=== PATIENT | female | born 1955 | race Caucasian/White ===

== ENCOUNTER 2018-10-27 10:21 | Emergency (ER) | payer OTHER ==
[2018-10-27 10:33] VITALS: BP 143/78; PULSE 76; TEMP 97.6; BMI 19.3
[2018-10-27] MEDS ORDERED: IBUPROFEN 400 MG TABLET (FP) PO ONE ×2 (10:45→10:50)
--- NOTE | 2018-10-27 11:44 | PDOC ---
History of Present Illness - General Chief Complaint: Injury Stated Complaint: FALL/LT KNEE INJURY Time Seen by Provider: 10/27/18 10:34 History Source: Patient Exam Limitations: No Limitations Past History - Past Medical History Allergies/Adverse Reactions: Allergies Allergy/AdvReac Type Severity Reaction Status Date / Time ciprofloxacin [From Cipro] AdvReac Severe Verified 10/27/18 10:41 Home Medications: Ambulatory Orders Oxycodone HCl/Acetaminophen [Percocet 5-325 mg Tablet] 1 - 2 tab PO Q6H PRN #20 tab MDD 4 10/27/18 COPD: No Diabetes: No GI Disorders: No - Surgical History GI Surgery: No - Immunization History Immunization Up to Date: No - Suicide/Smoking/Psychosocial Hx Smoking History: Never smoked Have you smoked in the past 12 months: No Information on smoking cessation initiated: No Hx Alcohol Use: No Drug/Substance Use Hx: No *Physical Exam - Vital Signs Last Vital Signs Temp Pulse Resp BP Pulse Ox 97.6 F 76 16 143/78 98 10/27/18 10:24 10/27/18 10:24 10/27/18 10:24 10/27/18 10:24 10/27/18 10:24 - Physical Exam General Appearance: No: Apparent Distress HEENT: positive: Other (No head trauma) Neck: positive: Supple Respiratory/Chest: positive: Lungs Clear, Normal Breath Sounds. negative: Respiratory Distress Cardiovascular: positive: Regular Rhythm, Regular Rate, S1, S2. negative: Murmur Gastrointestinal/Abdominal: positive: Normal Bowel Sounds, Soft. negative: Tender, Distended, Guarding, Rebound Musculoskeletal: positive: Other (Abrasions to B/L knees; no joint effusion noted, no joint deformity noted, minimal swelling of L knee, no joint tenderness , no joint laxity noted, pain on passive and active extension of L knee) Integumentary: positive: Normal Color Neurologic: positive: Fully Oriented, Alert, Normal Mood/Affect Moderate Sedation - Procedure Monitoring Vital Signs: Procedure Monitoring Vital Signs Temperature 97.6 F 10/27/18 10:24 Pulse Rate 76 10/27/18 10:24 Respiratory Rate 16 10/27/18 10:24 Blood Pressure 143/78 10/27/18 10:24 O2 Sat by Pulse Oximetry (%) 98 10/27/18 10:24 ED Treatment Course - RADIOLOGY Radiology Studies Ordered: Category Date Time Status LOWER EXTREMITY CT W/O CONTR [CT] Stat CT Scan 10/27/18 11:16 Ordered KNEE 4 POS-LEFT [RAD] Stat Radiology 10/27/18 10:45 Taken - Medications Given in the ED: ED Medications Discontinued Medications Generic Name Dose Route Start Last Admin Trade Name Freq PRN Reason Stop Dose Admin Ibuprofen 400 mg 10/27/18 10:45 10/27/18 10:55 Motrin - PO 10/27/18 10:46 400 mg ONCE ONE Administration Medical Decision Making - Medical Decision Making 63 y/o F with no sig pmh presents as accidentally tripped over ledge of garage landing on both knees (predominantly landing on L knee) today. Is c/o L knee pain. Denies LOC, head/neck trauma, hip/back/pelvis pain. L knee xray raises concern for possible small fracture at distal femur Will get CT scan of L knee to better assess 10/27/18 11:43 CT scan confirms acute distal left femoral fracture Ortho, Dr. Mckeon, consulted, who will come to see patient 10/27/18 14:[address] Mckeon Patient LLE was placed in knee immobilizer and patient was given crutches Patient to f/u with Dr. Mckeon 10/27/18 15:35 *DC/Admit/Observation/Transfer Diagnosis at time of Disposition: Femoral distal fracture Qualifiers: Encounter type: initial encounter Fracture type: closed Fracture morphology: other fracture Laterality: left Qualified Code(s): S72.492A - Other fracture of lower end of left femur, initial encounter for closed fracture - Discharge Dispostion Disposition: HOME Condition at time of disposition: Stable Decision to Admit order: No - Prescriptions Prescriptions: Oxycodone HCl/Acetaminophen [Percocet 5-325 mg Tablet] 1 - 2 tab PO Q6H PRN #20 tab MDD 4 PRN Reason: Pain - Referrals Referrals: Jose Mckeon DO [Staff Physician] - 11/01/18 - Patient Instructions Printed Discharge Instructions: DI for Femoral Fracture, How to Use Crutches Additional Instructions: Thank you for choosing [facility]. It was a pleasure taking care of you. You were found to have left distal femur fracture for which you were placed in knee immbolizer Do not bear weight on the left leg. For severe pain, you may take Percocet. This medication can make you constipated for which you may take over the counter Senna tablets as needed. This medication can also make you drowsy so please be cautious with driving or performing heavy physical work. This medication contains Tylenol. Do not take more than 4000 mg of Tylenol in 1 day. Please follow-up with orthopedics, Dr. Mckeon, on 11/01 as scheduled Return to the Emergency Department if your symptoms worsen or persist or have other concerning symptoms. - Post Discharge Activity Forms/Work/School Notes: Back to Work
--- NOTE | 2018-10-27 15:03 | CONSULT ---
Consult - text type - Consultation Consultation Note: ORTHOPEDIC SURGERY CONSULTATION NOTE Department of Orthopedic Surgery HISTORY OF PRESENT ILLNESS Ms. Perez is a 63 year old female who presents to [facility] Emergency Room with a left knee injury. The orthopedic service was consulted for a left distal femur fracture. The injury occurred when she tripped at home and landed on her knees. The patient notes significant pain and swelling in her left knee, and difficulty ambulating on her LLE, which improves with rest/ice. Denies any other injuries. Denies numbness, tingling or other constitutional complaints. The patient works as a nurse at [employer] in [place]. Denies/ Endorses tobacco use, drug use, alcohol abuse. The patient lives with family and uses no assistive devices at baseline. FAMILY HISTORY na REVIEW OF SYMPTOMS A twelve-point review of systems was performed and was negative except as noted in HPI. PHYSICAL EXAM Constitutional: Alert and oriented to person, place, and time. Appears well- developed and well-nourished. No acute distress, appropriate mood and affect. Pulmonary: Breathing comfortably, normal air movement, no audible wheezing. Right Upper Extremity: Skin warm, dry, and intact; there is a bruise at the right wrist over the distal radiocarpal joint, wiht mild tenderness. Muscle mass equal and symmetric to contralateral side. No atrophy noted. No masses or effusions noted. No tenderness to palpation of the fingers, elbow and shoulder; nontender throughout rest of extremity. Full passive and active ROM, free from pain of the fingers, wrist, elbow, and shoulder. Joints stable with no pathologic laxity. M/R/U/MSK/AX motor intact; SILT distally; 2+ radial pulses; Cap refill brisk. Tone and reflexes normal. Left Upper Extremity: Skin warm, dry, and intact; no lesions, rashes or ulcers noted. Muscle mass equal and symmetric to contralateral side. No atrophy noted. No masses or effusions noted. No tenderness to palpation all joints, nontender throughout rest of extremity. Full passive and active ROM, free from pain. Joints stable with no pathologic laxity. M/R/U/MSK/AX motor intact; SILT distally; 2+ radial pulses; Cap refill brisk. Tone and reflexes normal. Right Lower Extremity: Skin warm, dry, and intact; no lesions, rashes or ulcers noted. Muscle mass equal and symmetric to contralateral side. No atrophy noted. No masses or effusions noted. No tenderness to palpation all joints; nontender throughout rest of extremity. No cords or calf tenderness No significant calf/ankle edema. Full passive and active ROM, free from pain. Joints stable with no pathologic laxity. EHL/TA/GS motor intact; SILT distally; 2+ DP pulses; Cap refill brisk. Tone and reflexes normal. Left Lower Extremity: Skin warm, dry, and intact; no lesions, rashes or ulcers noted. Muscle mass equal and symmetric to contralateral side. No atrophy noted. No masses or effusions noted. Tender to palpation at the distal femur, as well as at the insertion of the quadriceps tendon on the patella; nontender throughout rest of extremity. No cords or calf tenderness No significant calf/ankle edema. Full passive and active ROM of the ankle, free from pain. Joints stable with no pathologic laxity. EHL/TA/GS motor intact; SILT distally; 2+ DP pulses; Cap refill brisk. Tone and reflexes normal. Social History Smoking history Never smoked Hx Alcohol Use No Allergies Allergy/AdvReac Type Severity Reaction Status Date / Time ciprofloxacin [From Cipro] AdvReac Severe Verified 10/27/18 10:41 Vital Signs (last) Temp Pulse Resp BP Pulse Ox 97.6 F 76 16 143/78 98 10/27/18 10:24 10/27/18 10:24 10/27/18 10:24 10/27/18 10:24 10/27/18 10:24 Intake and Output 10/25/18 10/26/18 10/27/18 23:59 23:59 23:59 Other: Weight 135 lb Height 5 ft 10 in Body Mass Index (BMI) 19.3 Weight Measurement Method Est/Stated by Patient IMAGING I personally reviewed all radiographs, CT, and other imaging. They demonstrate a non-displaced distal femur fracture. She also has some arthritis, worst in the medial compartment, characterized by sclerosis, and mild joint space narrowing. There are no bony lesions or dislocations seen. Radiographs of the right wrist were also reviewed by me today. I do not see any fractures, dislocations, or bony lesions of the right wrist. ASSESSMENT AND PLAN Ms. Perez is a 63 year old female presenting status post fall with a left sided non-displaced distal femur intra-articular fracture. We have reviewed the imaging and clinical findings in detail, as well as their potential implications. After appropriate informed discussion, the patient was placed in a well-padded bulky-borges knee immobilizer. Patient was instructed regarding: non weight bearing on fractured side. signs and symptoms of compartment syndrome and need to seek immediate care should new onset numbness, tingling, or significantly increasing pain occur. maintain strict elevation above the level of the heart for the next 3-4 days. keeping the splint clean and dry. avoiding NSAID medications. All questions were answered. Thank you for involving our team in the care of this patient. Please have patient follow up in our office in 1-2 weeks [phone].
== END 2018-10-27 15:53 | disposition home or self-care (01) ==
LOC: JERFT 10:21
PROC: 2W3RX1Z Immobilization of Left Lower Leg using Splint (ICD-10-PCS; principal; 2018-10-27)
DX: S72.492A Other fracture of lower end of left femur, initial encounter for closed fracture (principal); W18.09XA Striking against other object with subsequent fall, initial encounter; Y93.89 Activity, other specified; Y92.008 Other place in unspecified non-institutional (private) residence as the place of occurrence of the external cause
CPT/HCPCS: 73110-TC-RT-FY; 73564-TC-LT-FY; 73700-TC-RT; 99283-25

== ENCOUNTER 2018-10-27 17:45 | Emergency (ER) | payer OTHER ==
[2018-10-27 17:58] VITALS: BP 171/80; PULSE 80; TEMP 97.4; BMI 19.3
--- NOTE | 2018-10-27 18:26 | PDOC ---
History of Present Illness - General Chief Complaint: Syncope/Near Syncope Stated Complaint: Syncope/Near Syncope - History of Present Illness Initial Comments: The pt is a 63F w/ a no reported PMH who presents for evaluation s/p syncopal fall while walking into her home at approximately 1645. The patient was caught/ guided down/did not hit her head. Endorses LOC. She was seen at [facility] earlier today for a distal femur fx s/p mechanical fall. On presentation, denies dizziness. Reports she is very thirsty and feels dehydrated. Denies fevers/chills, BANSAL, blurry vision, chest pain, SOB, abdominal pain, N/V/C/ D, dysuria, or changes in sensation 10/27/18 18:48 Past History - Past Medical History Allergies/Adverse Reactions: Allergies Allergy/AdvReac Type Severity Reaction Status Date / Time ciprofloxacin [From Cipro] AdvReac Severe Verified 10/27/18 17:55 Home Medications: Ambulatory Orders Diazepam [Valium] 2 mg PO TID PRN #6 tablet MDD 3 tabs 10/27/18 Oxycodone HCl/Acetaminophen [Percocet 5-325 mg Tablet] 1 - 2 tab PO Q6H PRN #20 tab MDD 4 10/27/18 COPD: No Diabetes: No GI Disorders: No - Surgical History GI Surgery: No - Immunization History Immunization Up to Date: No - Suicide/Smoking/Psychosocial Hx Smoking History: Never smoked Have you smoked in the past 12 months: No Information on smoking cessation initiated: No Hx Alcohol Use: No Drug/Substance Use Hx: No Review of Systems - Review of Systems Able to Perform ROS?: Yes Comments:: GENERAL/CONSTITUTIONAL: No fever or chills. No weakness HEAD, EYES, EARS, NOSE AND THROAT: No change in vision. No ear pain or discharge. No sore throat CARDIOVASCULAR: No chest pain or shortness of breath RESPIRATORY: Denies cough, hemoptysis GASTROINTESTINAL: No nausea, vomiting, diarrhea or constipation GENITOURINARY: No dysuria, frequency, or change in urination MUSCULOSKELETAL: +L distal femur fx (splinted earlier today) SKIN: No rash NEUROLOGIC: No headache, vertigo, or change in strength/sensation ENDOCRINE: No increased thirst. No abnormal weight change HEMATOLOGIC/LYMPHATIC: No anemia, easy bleeding, or history of blood clots ALLERGIC/IMMUNOLOGIC: No hives or skin allergy 10/27/18 22:39 Is the patient limited German proficient: No *Physical Exam - Vital Signs Last Vital Signs Temp Pulse Resp BP Pulse Ox 97.4 F L 80 20 171/80 H 100 10/27/18 17:56 10/27/18 17:56 10/27/18 17:56 10/27/18 17:56 10/27/18 17:56 - Physical Exam Comments: GENERAL: Awake, alert, and fully oriented, in no acute distress HEAD: No signs of trauma, normocephalic, atraumatic EYES: PERRLA, EOMI, sclera anicteric, conjunctiva clear ENT: Hearing grossly normal, nares patent, oropharynx clear without exudates. Dry mucosa LUNGS: No distress, speaks full sentences, clear to auscultation bilaterally HEART: Regular rate and rhythm, normal S1 and S2, no murmurs appreciated, peripheral pulses normal and equal bilaterally ABDOMEN: Soft, nontender, normoactive bowel sounds. No guarding, no rebound EXTREMITIES: LLE splinted and in [id number]; DP 2+ b/l NEUROLOGICAL: Cranial nerves II through XII grossly intact. Normal speech, no focal sensorimotor deficits SKIN: Warm, Dry 10/27/18 22:41 Moderate Sedation - Procedure Monitoring Vital Signs: Procedure Monitoring Vital Signs Temperature 97.4 F L 10/27/18 17:56 Pulse Rate 80 10/27/18 17:56 Respiratory Rate 20 10/27/18 17:56 Blood Pressure 171/80 H 10/27/18 17:56 O2 Sat by Pulse Oximetry (%) 100 10/27/18 17:56 ED Treatment Course - LABORATORY CBC & Chemistry Diagram: 10/27/18 20:20 10/27/18 20:20 Medical Decision Making - Medical Decision Making The pt is a 63F w/ no reported PMH who was seen earlier today for a mechanical fall, now s/p femur fx who presented for syncopal episode while walking up the stairs to her home s/p discarge today w/ LOC w/o head trauma (pt caught by aid). ED Course CMP, CBC, Trop I CT Head IVF CT Head w/o acute fx or bleed No leukocytosis No anemia 10/27/18 21:11 Trop I neg Lytes wnl No HINA LFTs wnl Pain improved s/p Valium and Oxy Plan for D/C w/ PCP and neurology f/u Patient with pain Rx already sent to pharmacy Discharge instructions and return precautions given Patient in agreement and verbalized understanding Dispo: home 10/27/18 22:42 *DC/Admit/Observation/Transfer Diagnosis at time of Disposition: Chiari I malformation Syncope Qualifiers: Syncope type: unspecified Qualified Code(s): R55 - Syncope and collapse - Discharge Dispostion Disposition: HOME Condition at time of disposition: Stable Decision to Admit order: No - Referrals Referrals: [facility] [place] [facility] at [place] [Provider Group] Josh Gonzales MD, FAANS [Staff Physician] - Frederic Clarke MD [Staff Physician] - - Patient Instructions Printed Discharge Instructions: DI for Syncope in Adults (Fainting) Additional Instructions: You were seen in the Emergency Department of evaluation of syncope. Review the handout provided at discharge. Follow up with your primary care physician. Return to the Emergency Department if you develop fevers, trouble breathing, chest pain, repeat syncope, vision changes, or any new/concerning symptoms. - Post Discharge Activity
[2018-10-27] MEDS ORDERED: SODIUM CHLORIDE 0.9% 500 ML INFUS.BAG IV ONE (18:47)
--- NOTE | 2018-10-27 18:57 | PDOC ---
Attending Attestation - HPI HPI: This patient is a 63 year old female with a no reported PMHx who presents for evaluation s/p syncopal fall while walking into her home at approximately 4:45 pm. Patient was actually seen here in the ER earlier s/p mechanical fall around 8:15am. Patient was diagnosed with a left distal femur fracture, splinted, given ortho f/u. Patient noted that she has been NPO since the incident for possible surgery. Patient states that this afternoon incident occured as she was going up the stairs, accompanied by her son. She states that she felt weak, and felt this hot flushed feeling and lost consciouness. She states that she was caught by her son and did not hit her head. She states that she currently feels thirsty and dehydrated She denies and headache, blurry vision, changes in vision, numbness or tingling , chest pain, shortness of breath, palpitations, or abdominal pain. She denies any nausea, vomiting, diarrhea. 10/27/18 20:20 - Physicial Exam PE: GENERAL: Awake, alert, and fully oriented, in no acute distress HEAD: No signs of trauma EYES: PERRLA, EOMI, sclera anicteric, conjunctiva clear ENT: Auricles normal inspection, hearing grossly normal, nares patent, oropharynx clear without exudates. Moist mucosa NECK: Normal ROM, supple, no lymphadenopathy, JVD, or masses LUNGS: Breath sounds equal, clear to auscultation bilaterally. No wheezes, and no crackles HEART: Regular rate and rhythm, normal S1 and S2, no murmurs, rubs or gallops ABDOMEN: Soft, nontender, normoactive bowel sounds. No guarding, no rebound. No masses EXTREMITIES: Straight leg brace to LLE, sensation intact, muscle strength intact , distal pedal pulses palpable, neuro vascularly intact. Limited ROM to LLE secondary to acute fx. NEUROLOGICAL:Normal speech. SKIN: Warm, Dry, normal turgor, no rashes or lesions noted. <Louann Horton - Last Filed: 10/27/18 20:20> - Resident Resident Name: Min Dick - ED Attending Attestation I have performed the following: I have examined & evaluated the patient, The case was reviewed & discussed with the resident, I agree w/resident's findings & plan, Exceptions are as noted - Medical Decision Making 10/27/18 18:57 I, Dr. Soheila Jara, DO, attest that this document has been prepared under my direction and personally reviewed by me in its entirety. I further attest, that it accurately reflects all work, treatment, procedures and medical decision -making performed by me. 10/27/18 19:38 a/p: 63yo female with distal femur fx today in a straight leg brace with a syncopal episode while walking up the stairs after being NPO all day -suspect vasovagal episode secondary to narcotic use today for pain control, npo all day -states she felt dehydrated -pt unsure if she hit her head when she fell the first time today -pt denies hitting her head when she syncopized- was caught by her son -no yu -no neck pain -no back pain -no cp/sob/palpitations -denies feeling lightheaded at this time -will send labs, po intake, ekg, head ct -will monitor and reassess 10/27/18 21:[address] does not show acute findings, does show poss chiari 1 malformation will give neurosurgical follow up for outpt eval 10/27/18 21:39 trop negative labs reviewed and stable 10/27/18 22:10 pt feeling better discussed head ct findings discussed labs pt feeling better son lives with the patient and will take her home has ortho follow up scheduled stable for dc to home <Soheila Jara - Last Filed: 10/27/18 22:13> *DC/Admit/Observation/Transfer - Discharge Dispostion Decision to Admit order: No <Soheila Jara - Last Filed: 10/27/18 22:13> Diagnosis at time of Disposition: Syncope, Chiari I malformation - Discharge Dispostion Disposition: HOME Condition at time of disposition: Stable - Referrals Ref[place]: [facility] [place] [facility] [place] [[place] Group] Frederic Clarke MD [Staff Physician] - Josh Gonzales MD, FAANS [Staff Physician] - - Patient Instructions Printed Discharge Instructions: DI for Syncope in Adults (Fainting) Additional Instructions: You were seen in the Emergency Department of evaluation of syncope. Review the handout provided at discharge. Follow up with your primary care physician. Return to the Emergency Department if you develop fevers, trouble breathing, chest pain, repeat syncope, vision changes, or any new/concerning symptoms. - Post Discharge Activity Heart Score/ECG Review - ECG Intrepretation Comment:: 10/27/18 19:37 sinus at 74, nl axis, nl interval, biphasic t wave in v3, no acute st changes <Soheila Jara - Last Filed: 10/27/18 22:13>
[2018-10-27] MEDS ORDERED: diazePAM 2 MG TABLET PO ONE ×2 (18:59→22:09)
[2018-10-27] MEDS ORDERED: diazePAM 2 MG TABLET ONE ×2 (19:01→22:29)
[2018-10-27 20:45] LABS: BASO % 0.3 % (0-2.0); HEMATOCRIT 37.5 % (32.4-45.2); HEMOGLOBIN 12.8 GM/dL (10.7-15.3); MCH 32.5 pg (25.7-33.7); MCHC 34.3 g/dl (32.0-36.0); MEAN CELL VOLUME 94.7 fl (80-96); MEAN PLT VOLUME 7.9 fl (7.5-11.1); MONO % 6.3 % (3.8-10.2); NEUT % 80.4 % (42.8-82.8); PLATELET COUNT 237 K/MM3 (134-434); RBC 3.96 M/mm3 (3.60-5.2); RDW 12.9 % (11.6-15.6); WHITE BLOOD COUNT 8.3 K/mm3 (4.0-10.0)
[2018-10-27 21:28] LABS: ALK PHOS 57 U/L (45-117); ANION GAP 9 MMOL/L (8-16); BILIRUBIN,TOTAL 0.8 mg/dL (0.2-1); BLOOD UREA NITROGEN 13 mg/dL (7-18); CALCIUM 8.4 mg/dL (8.5-10.1); CHLORIDE 106 mmol/L (98-107); CO2 24 mmol/L (21-32); CREATININE 0.8 mg/dL (0.55-1.3); GLUCOSE,RANDOM 107 mg/dL (74-106); SGOT/AST 12 U/L (15-37); SGPT/ALT 19 U/L (13-61); SODIUM 139 mmol/L (136-145); TOT PROT 6.5 g/dl (6.4-8.2)
[2018-10-27] MEDS ORDERED: oxyCODONE HCL 5 MG TABLET PO ONE (22:09)
[2018-10-27] MEDS ORDERED: oxyCODONE HCL 5 MG TABLET ONE (22:29)
--- NOTE | 2018-10-28 12:22 | EKG ---
Test Reason : Blood Pressure : / mmHG Vent. Rate : 074 BPM Atrial Rate : 074 BPM P-R Int : 134 ms QRS Dur : 088 ms QT Int : 394 ms P-R-T Axes : 081 068 050 degrees QTc Int : 437 ms NORMAL SINUS RHYTHM NORMAL ECG NO PREVIOUS ECGS AVAILABLE Confirmed by SLY DUKES MD ([id number]) on 10/28/2018 12:22:06 PM Referred By: Confirmed By:SLY DUKES MD
== END 2018-10-27 22:55 | disposition home or self-care (01) ==
LOC: JER 17:45
PROC: 3E0337Z Introduction of Electrolytic and Water Balance Substance into Peripheral Vein, Percutaneous Approach (ICD-10-PCS; principal; 2018-10-27)
DX: G93.5 Compression of brain (principal); R55 Syncope and collapse
CPT/HCPCS: 36415; 70450-TC; 80053; 84484; 85025; 93005; 93010; 99282-25

== ENCOUNTER 2021-07-23 10:47 | Inpatient (IN) | payer OTHER ==
[2021-07-23 10:59] VITALS: BMI 17.2
[2021-07-23] MEDS ORDERED: dilTIAZem HCL 50 MG/10 ML - 10 ML VIAL IVPUSH ONE (12:02)
[2021-07-23] MEDS ORDERED: dilTIAZem HCL 50 MG/10 ML - 10 ML VIAL ONE ×2 (12:08→14:56)
[2021-07-23] MEDS ORDERED: dilTIAZem HCL 30 MG TABLET PO ONE (12:18)
[2021-07-23] MEDS ORDERED: dilTIAZem HCL 30 MG TABLET ONE (12:20)
[2021-07-23 12:33] LABS: HEMATOCRIT 25.5 % (32.4-45.2); MCHC 35.5 g/dl (32.0-36.0); MEAN CELL VOLUME 95.9 fl (80-96); MEAN PLT VOLUME 8.3 fl (7.5-11.1); PLATELET COUNT 108 10^3/uL (134-434); RBC 2.66 M/mm3 (3.60-5.2); RDW 19.5 % (11.6-15.6)
[2021-07-23 12:41] LABS: INR 1.41 (0.83-1.09); PROTHROMBIN TIME (PATIENT) 15.8 SEC (9.7-13.0)
[2021-07-23 12:45] LABS: ACTIVATED PTT 23.1 SECONDS (25.2-36.5)
[2021-07-23 12:48] LABS: WHITE BLOOD COUNT 1.4 K/mm3 (4.0-10.0)
[2021-07-23 12:50] LABS: CHLORIDE 99 mmol/L (98-107); SODIUM 134 mmol/L (136-145)
[2021-07-23 12:53] LABS: ALBUMIN 3.2 g/dl (3.4-5.0); CALCIUM 9.4 mg/dL (8.5-10.1)
[2021-07-23 12:54] LABS: ANION GAP 12 MMOL/L (8-16); BLOOD UREA NITROGEN 21.6 mg/dL (7-18); CO2 23 mmol/L (21-32); GLUCOSE,RANDOM 126 mg/dL (74-106)
[2021-07-23 12:57] LABS: CREATININE 0.6 mg/dL (0.55-1.3); SGOT/AST 14 U/L (15-37)
[2021-07-23 12:58] LABS: BILIRUBIN,TOTAL 0.8 mg/dL (0.2-1); TOT PROT 6.2 g/dl (6.4-8.2)
[2021-07-23 12:59] LABS: ALK PHOS 82 U/L (45-117); SGPT/ALT 13 U/L (13-61)
[2021-07-23 13:47] LABS: ANISOCYTOSIS 1+; MACROCYTOSIS 0; OVALOCYTE 1+; PLATELET ESTIMATE DECREASED
[2021-07-23] MEDS ORDERED: dilTIAZem HCL 125 MG/25 ML - 25 ML VIAL ONE (14:58)
[2021-07-23] MEDS: dilTIAZem HCL 30 MG TABLET PO SCH (17:29)
[2021-07-23] MEDS ORDERED: ONDANSETRON 4 MG/2 ML VIAL IVPB ONE (20:04)
[2021-07-23] MEDS ORDERED: MAGNESIUM SULF 50% (8.12 MEQ/2 ML-1 GM VIAL) IVPB ONE (20:09)
[2021-07-23] MEDS ORDERED: ONDANSETRON 8 MG TABLET (FP) PO ONE (20:09)
[2021-07-23] MEDS ORDERED: ONDANSETRON 4 MG TABLET PO ONE (20:19)
[2021-07-23] MEDS: APIXABAN 5 MG TABLET PO SCH (21:34)
[2021-07-23 21:55] LABS: BLOOD UREA NITROGEN 13.3 mg/dL (7-18); CALCIUM 8.9 mg/dL (8.5-10.1); MAGNESIUM 1.5 mg/dL (1.8-2.4)
[2021-07-23 21:59] LABS: CREATININE 0.6 mg/dL (0.55-1.3); PHOSPHOROUS 3.2 mg/dL (2.5-4.9)
[2021-07-23] MEDS ORDERED: HEPARIN NA (PORCINE) 5,000 UNITS/ML 1ML VIAL SQ SCH (22:00)
[2021-07-24] MEDS: dilTIAZem HCL 30 MG TABLET PO SCH ×4 (00:12→12:23)
[2021-07-24] MEDS ORDERED: MAGNESIUM SULF 50% (8.12 MEQ/2 ML-1 GM VIAL) IVPB ONE (00:30)
[2021-07-24 06:48] LABS: HEMATOCRIT 20.7 % (32.4-45.2); HEMOGLOBIN 7.3 GM/dL (10.7-15.3); MCH 33.9 pg (25.7-33.7); MCHC 35.5 g/dl (32.0-36.0); MEAN CELL VOLUME 95.7 fl (80-96); MEAN PLT VOLUME 8.6 fl (7.5-11.1); PLATELET COUNT 83 10^3/uL (134-434); RBC 2.16 M/mm3 (3.60-5.2); RDW 18.5 % (11.6-15.6)
[2021-07-24 07:01] LABS: WHITE BLOOD COUNT 0.9 K/mm3 (4.0-10.0)
[2021-07-24 07:02] LABS: CALCIUM 8.6 mg/dL (8.5-10.1)
[2021-07-24 07:03] LABS: ALBUMIN 2.6 g/dl (3.4-5.0)
[2021-07-24 07:06] LABS: CREATININE 0.5 mg/dL (0.55-1.3); PHOSPHOROUS 4.2 mg/dL (2.5-4.9)
[2021-07-24 07:07] LABS: BILIRUBIN,TOTAL 0.4 mg/dL (0.2-1); TOT PROT 5.1 g/dl (6.4-8.2)
[2021-07-24 07:11] LABS: MAGNESIUM 1.5 mg/dL (1.8-2.4)
[2021-07-24 09:40] LABS: ANISOCYTOSIS 0; MACROCYTOSIS 0; OVALOCYTE 1+; PLATELET ESTIMATE DECREASED; ROULEAU 1+
[2021-07-24] MEDS ORDERED: PT OWN MED DRAWER 7, Y5N ONE (09:44)
[2021-07-24] MEDS: APIXABAN 5 MG TABLET PO SCH ×2 (10:29→21:30)
[2021-07-25 07:05] LABS: HEMATOCRIT 21.8 % (32.4-45.2); HEMOGLOBIN 7.6 GM/dL (10.7-15.3); MCH 33.6 pg (25.7-33.7); MCHC 34.8 g/dl (32.0-36.0); MEAN CELL VOLUME 96.5 fl (80-96); MEAN PLT VOLUME 9.3 fl (7.5-11.1); PLATELET COUNT 68 10^3/uL (134-434); RBC 2.26 M/mm3 (3.60-5.2); RDW 18.5 % (11.6-15.6)
[2021-07-25 07:16] LABS: INR 1.19 (0.83-1.09)
[2021-07-25 07:24] LABS: CHLORIDE 105 mmol/L (98-107); SODIUM 139 mmol/L (136-145)
[2021-07-25 07:27] LABS: WHITE BLOOD COUNT 0.7 K/mm3 (4.0-10.0)
[2021-07-25 07:30] LABS: ALBUMIN 2.8 g/dl (3.4-5.0)
[2021-07-25 07:31] LABS: ANION GAP 8 MMOL/L (8-16); BLOOD UREA NITROGEN 10.8 mg/dL (7-18); CALCIUM 9.3 mg/dL (8.5-10.1); CO2 27 mmol/L (21-32); GLUCOSE,RANDOM 95 mg/dL (74-106)
[2021-07-25 07:32] LABS: MAGNESIUM 1.5 mg/dL (1.8-2.4)
[2021-07-25 07:33] LABS: CREATININE 0.5 mg/dL (0.55-1.3); SGOT/AST 8 U/L (15-37); SGPT/ALT 11 U/L (13-61)
[2021-07-25 07:34] LABS: BILIRUBIN,TOTAL 0.6 mg/dL (0.2-1); PHOSPHOROUS 4.2 mg/dL (2.5-4.9); TOT PROT 5.5 g/dl (6.4-8.2)
[2021-07-25 07:36] LABS: ALK PHOS 73 U/L (45-117)
[2021-07-25] MEDS ORDERED: MAGNESIUM SULFATE IN WATER 4 GM/50 ML BAG IVPB ONE (09:00)
[2021-07-25] MEDS ORDERED: MAGNESIUM SULF 50% (8.12 MEQ/2 ML-1 GM VIAL) ONE (09:07)
[2021-07-25 09:41] LABS: ANISOCYTOSIS 0; MACROCYTOSIS 0; PLATELET ESTIMATE DECREASED
[2021-07-25] MEDS: APIXABAN 5 MG TABLET PO SCH ×2 (09:57→21:48)
[2021-07-25] MEDS: ONDANSETRON 4 MG/2 ML VIAL IVPB ONE ×2 (15:32→18:33)
[2021-07-26 07:32] LABS: HEMATOCRIT 22.1 % (32.4-45.2); HEMOGLOBIN 7.8 GM/dL (10.7-15.3); MCH 33.8 pg (25.7-33.7); MCHC 35.3 g/dl (32.0-36.0); MEAN CELL VOLUME 95.7 fl (80-96); MEAN PLT VOLUME 9.5 fl (7.5-11.1); PLATELET COUNT 61 10^3/uL (134-434); RBC 2.31 M/mm3 (3.60-5.2); RDW 18.2 % (11.6-15.6)
[2021-07-26 07:38] LABS: WHITE BLOOD COUNT 0.8 K/mm3 (4.0-10.0)
[2021-07-26 08:14] LABS: CALCIUM 8.9 mg/dL (8.5-10.1)
[2021-07-26 08:15] LABS: BLOOD UREA NITROGEN 10.6 mg/dL (7-18); MAGNESIUM 1.8 mg/dL (1.8-2.4)
[2021-07-26 08:18] LABS: CREATININE 0.5 mg/dL (0.55-1.3); PHOSPHOROUS 4.4 mg/dL (2.5-4.9)
[2021-07-26 08:19] LABS: BILIRUBIN,TOTAL 0.6 mg/dL (0.2-1); TOT PROT 5.8 g/dl (6.4-8.2)
[2021-07-26] MEDS ORDERED: PT OWN MED DRAWER 7, Y5N ONE (09:11)
[2021-07-26] MEDS: APIXABAN 5 MG TABLET PO SCH ×2 (09:43→21:14)
[2021-07-26 13:23] LABS: ANISOCYTOSIS 1+; MACROCYTOSIS 0; OVALOCYTE 1+; PLATELET ESTIMATE DECREASED; TEAR DROP CELLS 1+
[2021-07-26] MEDS ORDERED: dilTIAZem HCL 50 MG/10 ML - 10 ML VIAL IVPUSH ONE (18:25)
[2021-07-26] MEDS ORDERED: ONDANSETRON 8 MG TABLET (FP) PO PRN (20:59)
[2021-07-26] MEDS ORDERED: MELATONIN 5 MG TABLETS PO PRN (21:08)
[2021-07-26] MEDS ORDERED: ONDANSETRON 4 MG TABLET PO ONE ×2 (21:10→21:15)
[2021-07-26] MEDS: PANTOPRAZOLE 40 MG TABLET PO SCH (21:15)
[2021-07-26] MEDS ORDERED: MELATONIN 1 MG TABLET PO SCH (22:00)
[2021-07-27 06:56] LABS: HEMATOCRIT 20.4 % (32.4-45.2); HEMOGLOBIN 7.3 GM/dL (10.7-15.3); MCH 34.3 pg (25.7-33.7); MCHC 35.8 g/dl (32.0-36.0); MEAN PLT VOLUME 9.5 fl (7.5-11.1); PLATELET COUNT 51 10^3/uL (134-434); RBC 2.12 M/mm3 (3.60-5.2); RDW 18.3 % (11.6-15.6)
[2021-07-27 07:18] LABS: CALCIUM 8.6 mg/dL (8.5-10.1)
[2021-07-27 07:19] LABS: ALBUMIN 2.7 g/dl (3.4-5.0); BLOOD UREA NITROGEN 12.3 mg/dL (7-18)
[2021-07-27 07:22] LABS: CREATININE 0.5 mg/dL (0.55-1.3)
[2021-07-27 07:24] LABS: BILIRUBIN,TOTAL 0.2 mg/dL (0.2-1); TOT PROT 5.4 g/dl (6.4-8.2)
[2021-07-27 08:47] VITALS: BP 109/59; PULSE 98; TEMP 97.7
[2021-07-27] MEDS: APIXABAN 5 MG TABLET PO SCH (10:21)
[2021-07-27] MEDS: PANTOPRAZOLE 40 MG TABLET PO SCH ×2 (10:21→10:24)
[2021-07-27 11:06] LABS: ANISOCYTOSIS 1+; MACROCYTOSIS 1+; PLATELET ESTIMATE DECREASED
== END 2021-07-27 13:27 | disposition home or self-care (01) | DRG 308 ==
LOC: JER 10:47 → JERBED 14:31 → J2W 16:35
PROVIDERS: ATTEND Student in an Organized Health Care Education/Training Program
DX: I48.0 Paroxysmal atrial fibrillation (principal); D61.810 Antineoplastic chemotherapy induced pancytopenia; R64 Cachexia; Z68.1 Body mass index [BMI] 19.9 or less, adult; C34.2 Malignant neoplasm of middle lobe, bronchus or lung; D70.9 Neutropenia, unspecified; R55 Syncope and collapse; I25.119 Atherosclerotic heart disease of native coronary artery with unspecified angina pectoris; I11.9 Hypertensive heart disease without heart failure; R00.0 Tachycardia, unspecified; E83.42 Hypomagnesemia
CPT/HCPCS: 36415; 71045-TC-FY; 80048; 80053; 80061; 82550; 82962; 83036; 83735; 83835; 83880; 84100; 84443; 84484; 85025; 85027; 85610; 85730; 86850; 86900; 86901; 87040; 87086; 87186; 93005; 93010; 93306-TC; 99285-25; C9803; U0003; U0005